=== PATIENT | female | born 1955 | race American Indian/Alaskan Native ===

== ENCOUNTER 2017-07-21 12:14 | Emergency (ER) | payer OTHER ==
--- NOTE | 2017-07-21 12:58 | Cat Scan Report ---
CT HEAD WITHOUT CONTRAST: HISTORY: Neurological deficit. TECHNIQUE: Sequential 2.5mm CT images. COMPARISON: none. FINDINGS: Cerebral Parenchyma: There is a partially calcified mass along the anterior left temporal lobe measuring 2.9 x 1.7 cm. This appears to represent an incidental middle cranial fossa meningioma. There is mild edema surrounding this mass in the left anterior temporal lobe. The remaining brain parenchyma is within normal limits. No large area of acute ischemia is confidently identified. Cerebellum: Within normal limits. Brainstem: Within normal limits. Ventricles: Normal. Sella: Normal. Extra-axial spaces: Normal. Basal Cisterns: Normal. Intracranial Hemorrhage: None. Midline Shift: None. Calvarium: Normal. Sinuses: Normal. Mastoid Air Cells: Normal. Visualized Orbits: Normal. IMPRESSION: No evidence for hemorrhage or large area of acute ischemia on noncontrast CT. Probable incidental middle cranial fossa meningioma as outlined above. This can be further evaluated with MRI with and without contrast if needed. These findings were discussed with Dr. Gonzáles in the emergency department at 1247 hrs.
--- NOTE | 2017-07-21 13:01 | Emergency Department Report ---
ED Neuro Deficit HPI - General Chief Complaint: Neuro Symptoms/Deficit Stated Complaint: LEFT SIDE FACIAL SWELLING/ DROOPING Time Seen by Provider: 07/21/17 13:00 Source: patient Mode of arrival: Ambulatory Limitations: No Limitations - History of Present Illness Initial Comments: Is a 61-year-old female that presents emergency room with complaints of left- sided facial weakness and drooping and swelling. She states she woke up this morning with the symptoms at 7:30 AM. Patient was then seen in urgent care and sent here for further evaluation. Patient denies chest pain shortness of breath. Patient denies difficulty speaking. Patient denies facial pain. Patient denies difficulty closing her eyes. -: Sudden Location: left face Presenting Symptoms: Present: Facial Droop/Numbness. Absent: Weak/Paralyzed One Side, Sudden, Severe Headache, Blurred/Loss of Vision, Unable to Speak Clearly, Altered Mental Status History of same: No Place: home Severity: mild Quality: numb Improves With: none Worsens With: none On Anticoagulants: No Context: sudden onset Associated Symptoms: denies other symptoms. denies: confusion, chest pain, cough, diaphoresis, fever/chills, headaches, loss of appetite, malise, nausea/ vomiting, vertigo, seizures, shortness of breath, syncope, weakness Treatments Prior to Arrival: none - Related Data Home Medications: Home Medications Medication Instructions Recorded Confirmed Last Taken Ergocalciferol [Vitamin D2] 1 cap PO QWEEK 07/21/17 07/21/17 Unknown Ferrous Sulfate [Iron] 325 mg PO DAILY 07/21/17 07/21/17 07/21/17 Lisinopril [Zestril TAB] 10 mg PO QDAY 07/21/17 07/21/17 07/21/17 amLODIPine [Norvasc] 10 mg PO DAILY 07/21/17 07/21/17 07/21/17 Allergies/Adverse Reactions: Allergies Allergy/AdvReac Type Severity Reaction Status Date / Time caffeine AdvReac Unknown Verified 07/21/17 12:27 ED Review of Systems ROS: Stated complaint: LEFT SIDE FACIAL SWELLING/ DROOPING Other details as noted in HPI Constitutional: denies: chills, fever Eyes: denies: eye pain, eye discharge, vision change ENT: denies: ear pain, throat pain Respiratory: denies: cough, shortness of breath, wheezing Cardiovascular: denies: chest pain, palpitations Endocrine: no symptoms reported Gastrointestinal: denies: abdominal pain, nausea, diarrhea Genitourinary: denies: urgency, dysuria, discharge Musculoskeletal: denies: back pain, joint swelling, arthralgia Skin: denies: rash, lesions Neurological: denies: headache, weakness, paresthesias Psychiatric: denies: anxiety, depression Hematological/Lymphatic: denies: easy bleeding, easy bruising ED Past Medical Hx - Past Medical History Previous Medical History?: Yes Hx Hypertension: Yes Additional medical history: LIPIDEMIA - Surgical History Past Surgical History?: Yes Additional Surgical History: HERNIA REPAIR 2006. GALL BLADDER HYSTERECTOMY. THYROID - Family History Family history: hypertension - Social History Smoking Status: Never Smoker Substance Use Type: None - Medications Home Medications: Home Medications Medication Instructions Recorded Confirmed Last Taken Type Ergocalciferol [Vitamin D2] 1 cap PO QWEEK 07/21/17 07/21/17 Unknown History Ferrous Sulfate [Iron] 325 mg PO DAILY 07/21/17 07/21/17 07/21/17 History Lisinopril [Zestril TAB] 10 mg PO QDAY 07/21/17 07/21/17 07/21/17 History amLODIPine [Norvasc] 10 mg PO DAILY 07/21/17 07/21/17 07/21/17 History ED Neuro Physical Exam - General Limitations: No Limitations General appearance: alert, in no apparent distress Suspected Stroke: Yes - Head Head exam: Present: atraumatic, normocephalic - Eye Eye exam: Present: normal appearance - ENT ENT exam: Present: mucous membranes moist - Neck Neck exam: Present: normal inspection - Respiratory Respiratory exam: Present: normal lung sounds bilaterally. Absent: respiratory distress - Cardiovascular Cardiovascular Exam: Present: regular rate, normal rhythm. Absent: systolic murmur, diastolic murmur, rubs, gallop - GI/Abdominal GI/Abdominal exam: Present: soft, normal bowel sounds - Extremities Exam Extremities exam: Present: normal inspection - Back Exam Back exam: Present: normal inspection - Neurological Exam Neurological exam: Present: alert, oriented X3 - NIHSS Assessment Interval: Baseline 1a. Level of Consciousness: alert 1b. LOC Questions: answers correctly 1c. LOC Commands: performs tasks correctly 2. Best Gaze: normal 3. Visual: no visual loss 4. Facial Palsy: minor paralysis 5b. Motor Arm Right: no drift 5a. Motor Arm Left: no drift 6a. Motor Leg Left: no drift 6b. Motor Leg Right: no drift 7. Limb Ataxia: absent 8. Sensory: normal 9. Best Language: no aphasia 10. Dysarthria: normal 11. Extinction/Inattention: no abnormality Total Score: 1 Stroke Severity: Minor Stroke - Psychiatric Psychiatric exam: Present: normal affect, normal mood - Skin Skin exam: Present: warm, dry, intact, normal color. Absent: rash ED Course Vital Signs 07/21/17 07/21/17 07/21/17 12:18 12:55 13:00 Temperature 98.3 F 98.3 F Pulse Rate 83 66 Respiratory 18 19 16 Rate Blood Pressure 142/94 128/82 Blood Pressure 128/82 [Right] O2 Sat by Pulse 98 97 Oximetry 07/21/17 07/21/17 07/21/17 13:15 13:30 13:45 Temperature Pulse Rate 60 78 62 Respiratory 19 12 16 Rate Blood Pressure 148/80 148/112 126/57 Blood Pressure [Right] O2 Sat by Pulse 99 100 97 Oximetry 07/21/17 07/21/17 07/21/17 14:00 14:15 14:30 Temperature Pulse Rate 65 68 64 Respiratory 21 14 12 Rate Blood Pressure 122/53 143/75 129/55 Blood Pressure [Right] O2 Sat by Pulse 94 97 100 Oximetry 07/21/17 07/21/17 07/21/17 14:45 15:00 15:15 Temperature Pulse Rate 72 76 76 Respiratory 17 17 13 Rate Blood Pressure 129/69 128/64 136/76 Blood Pressure [Right] O2 Sat by Pulse 96 96 96 Oximetry 07/21/17 07/21/17 07/21/17 15:30 15:45 16:00 Temperature Pulse Rate 75 77 83 Respiratory 14 15 14 Rate Blood Pressure 122/64 142/74 142/74 Blood Pressure [Right] O2 Sat by Pulse 97 95 98 Oximetry 07/21/17 07/21/17 07/21/17 16:16 16:30 16:46 Temperature Pulse Rate Respiratory Rate Blood Pressure 142/74 142/74 142/74 Blood Pressure [Right] O2 Sat by Pulse 98 97 98 Oximetry 07/21/17 07/21/17 07/21/17 17:00 17:15 17:30 Temperature Pulse Rate 74 76 74 Respiratory 16 20 18 Rate Blood Pressure 137/63 148/77 152/79 Blood Pressure [Right] O2 Sat by Pulse 97 98 98 Oximetry 07/21/17 07/21/17 07/21/17 17:45 18:00 18:15 Temperature Pulse Rate 73 76 72 Respiratory 17 13 13 Rate Blood Pressure 159/81 154/85 163/79 Blood Pressure [Right] O2 Sat by Pulse 100 97 99 Oximetry - Reevaluation(s) Reevaluation #1: Case with the tele-neurologist, Dr. Schneider. He recommends admission and MRI and no TPA 07/21/17 13:05 Reevaluation #2: Discussed plan of care with patient and family. ,. dr villeda recommends transfer. 07/21/17 14:21 Reevaluation #3: Discussed case with [place] transfer center. Awaiting acceptance from neurosurgery 07/21/17 15:02 Reevaluation #4: We'll consult [place] neurology service 07/21/17 15:21 Reevaluation #5: Dr. Piper accepts pt to [facility]. Patient given updated plan of care. Patient agrees to transfer. 07/21/17 17:36 - Consultations Consultation #1: dr Yanez from [facility] does not feel pt needs to be transfed to nsxr service but needs further neuro eval. 07/21/17 15:17 Consultation #2: DR SALINAS FROM [facility] REFUSED TRANSFER. 07/21/17 17:06 - Lab Data Result diagrams: 07/21/17 12:52 07/21/17 12:52 Lab Results 07/21/17 07/21/17 07/21/17 Range/Units 12:43 12:52 12:52 WBC 7.1 (4.5-11.0) K/mm3 RBC 5.34 H (3.65-5.03) M/mm3 Hgb 14.6 H (10.1-14.3) gm/dl Hct 43.5 H (30.3-42.9) % MCV 81 (79-97) fl MCH 27 L (28-32) pg MCHC 34 (30-34) % RDW 15.3 H (13.2-15.2) % Plt Count 254 (140-440) K/mm3 Lymph % (Auto) 22.2 (13.4-35.0) % Osborne % (Auto) 8.5 H (0.0-7.3) % Eos % (Auto) 0.9 (0.0-4.3) % Baso % (Auto) 0.7 (0.0-1.8) % Lymph # 1.6 (1.2-5.4) K/mm3 Osborne # 0.6 (0.0-0.8) K/mm3 Eos # 0.1 (0.0-0.4) K/mm3 Baso # 0.0 (0.0-0.1) K/mm3 Seg Neutrophils % 67.7 (40.0-70.0) % Seg Neutrophils # 4.8 (1.8-7.7) K/mm3 PT 13.5 (12.2-14.9) Sec. INR 0.98 (0.87-1.13) APTT 28.1 (24.2-36.6) Sec. Thrombin Time (15.1-19.6) Sec. Sodium (137-145) mmol/L Potassium (3.6-5.0) mmol/L Chloride (98-107) mmol/L Carbon Dioxide (22-30) mmol/L Anion Gap mmol/L BUN (7-17) mg/dL Creatinine (0.7-1.2) mg/dL Estimated GFR ml/min BUN/Creatinine Ratio % Glucose (65-100) mg/dL POC Glucose 94 (70-105) Calcium (8.4-10.2) mg/dL Troponin T (0.00-0.029) ng/mL 07/21/17 07/21/17 Range/Units 12:52 12:52 WBC (4.5-11.0) K/mm3 RBC (3.65-5.03) M/mm3 Hgb (10.1-14.3) gm/dl Hct (30.3-42.9) % MCV (79-97) fl MCH (28-32) pg MCHC (30-34) % RDW (13.2-15.2) % Plt Count (140-440) K/mm3 Lymph % (Auto) (13.4-35.0) % Osborne % (Auto) (0.0-7.3) % Eos % (Auto) (0.0-4.3) % Baso % (Auto) (0.0-1.8) % Lymph # (1.2-5.4) K/mm3 Osborne # (0.0-0.8) K/mm3 Eos # (0.0-0.4) K/mm3 Baso # (0.0-0.1) K/mm3 Seg Neutrophils % (40.0-70.0) % Seg Neutrophils # (1.8-7.7) K/mm3 PT (12.2-14.9) Sec. INR (0.87-1.13) APTT (24.2-36.6) Sec. Thrombin Time 17.9 (15.1-19.6) Sec. Sodium 137 (137-145) mmol/L Potassium 4.1 (3.6-5.0) mmol/L Chloride 99.4 (98-107) mmol/L Carbon Dioxide 25 (22-30) mmol/L Anion Gap 17 mmol/L BUN 18 H (7-17) mg/dL Creatinine 0.8 (0.7-1.2) mg/dL Estimated GFR > 60 ml/min BUN/Creatinine Ratio 23 % Glucose 92 (65-100) mg/dL POC Glucose (70-105) Calcium 9.3 (8.4-10.2) mg/dL Troponin T < 0.010 (0.00-0.029) ng/mL - EKG Data -: EKG Interpreted by Ok EKG shows normal: sinus rhythm, axis, intervals, QRS complexes, ST-T waves Rate: normal Interpretation: no acute changes, normal EKG - Radiology Data Radiology results: report reviewed Report reviewed and discussed with Dr. John. CT positive for meningioma with some swelling around it. No infarcts and no hemorrhage - Medical Decision Making 61-year-old female presents to emergency room with facial drooping. And found to have a meningioma with swelling at the site. Discussed case with Dr. Villeda. Dr. Villeda recommends transfer to Hospital as neurosurgery and a neurologist. Patient had a prolonged transfer process due to multiple specialists at [facility] refusing to accept patient. Patient finally accepted to [facility] in [place]. Patient will be transferred to [facility] further evaluation treatment. - Differential Diagnosis cva. facial droop. facial nerve d/o. Critical Care Time: Yes Critical care attestation.: If time is entered above; I have spent that time in minutes in the direct care of this critically ill patient, excluding procedure time. Critical Care Time: 45 minutes spent for cc time ED Disposition Clinical Impression: Facial droop, Meningioma Disposition: [id number]/TX-[id number] ANOTHER TYPE HLTHCARE Is pt being admited?: Yes Does the pt Need Aspirin: No Condition: Serious Time of Disposition: 17:39 - Assessment Assessment Interval: Baseline - Level of Consciousness 1a. Level of Consciousness: alert - LOC Questions 1b. LOC Questions: answers correctly - LOC Command 1c. LOC Commands: performs tasks correctly - Best Gaze 2. Best Gaze: normal - Visual 3. Visual: no visual loss - Facial Palsy 4. Facial Palsy: minor paralysis - Motor Arm 5b. Motor Arm Right: no drift 5a. Motor Arm Left: no drift - Motor Leg 6a. Motor Leg Left: no drift 6b. Motor Leg Right: no drift - Limb Ataxia 7. Limb Ataxia: absent - Sensory 8. Sensory: normal - Best Language 9. Best Language: no aphasia - Dysarthria 10. Dysarthria: normal - Extinction and Inattention 11. Extinction/Inattention: no abnormality - Scoring Total Score: 1 Stroke Severity: Minor Stroke
[2017-07-21 13:04] LABS: Basophils % (Auto) 0.7 % (0.0-1.8); Eosinophils # (Auto) 0.1 K/mm3 (0.0-0.4); Eosinophils % (Auto) 0.9 % (0.0-4.3); Hematocrit 43.5 % (30.3-42.9); Hemoglobin 14.6 gm/dl (10.1-14.3); Lymphocytes # (Auto) 1.6 K/mm3 (1.2-5.4); Lymphocytes % (Auto) 22.2 % (13.4-35.0); Mean Corpuscular HGB Conc 34 % (30-34); Mean Corpuscular Hemoglobin 27 pg (28-32); Mean Corpuscular Volume 81 fl (79-97); Monocytes # (Auto) 0.6 K/mm3 (0.0-0.8); Monocytes % (Auto) 8.5 % (0.0-7.3); Platelet Count 254 K/mm3 (140-440); Red Blood Count 5.34 M/mm3 (3.65-5.03); Red Cell Distribution Width 15.3 % (13.2-15.2)
[2017-07-21 13:12] LABS: INR 0.98 (0.87-1.13)
[2017-07-21 13:13] LABS: Partial Thromboplastin Time 28.1 Sec. (24.2-36.6)
[2017-07-21 13:14] LABS: BUN/Creatinine Ratio 23; Blood Urea Nitrogen 18 mg/dL (7-17); Calcium 9.3 mg/dL (8.4-10.2); Hemolysis Index 4
[2017-07-21] MEDS ORDERED: ASPIRIN PO ONE (13:57)
[2017-07-21 21:09] VITALS: BP 166/99
--- NOTE | 2017-07-22 10:29 | History and Physical Report ---
History of Present Illness Chief complaint: Im weak, and my face in droopy History of present illness: 61 YO Female with Obesity,HTN, HLD presents to ED for evaluation. Pt states that she was in her usual state of health upon going to bed around 2000hrs but awoke this morning around 730hrs with left side facial drooping, and weakness. Pt seen and evaluated in ED and found to have 2 x3cm Left Temporal mass with surrounding edema. Recommend transfer to higher level of care due to lack of subspecialty support. Discussed with Dr. Holt at [facility] who refused to accept patient. Pt deemed not appropriate for outpatient workup. Discussed with ED physician who plans to transfer patient to higher level of care. Past History Past Medical History: hypertension, hyperlipidemia Past Surgical History: cholecystectomy, thyroidectomy, hysterectomy, hernia repair Social history: Family history: hypertension Medications and Allergies Allergies Allergy/AdvReac Type Severity Reaction Status Date / Time caffeine AdvReac Unknown Verified 07/21/17 12:27 Home Medications Medication Instructions Recorded Confirmed Last Taken Type Ergocalciferol [Vitamin D2] 1 cap PO QWEEK 07/21/17 07/21/17 Unknown History Ferrous Sulfate [Iron] 325 mg PO DAILY 07/21/17 07/21/17 07/21/17 History Lisinopril [Zestril TAB] 10 mg PO QDAY 07/21/17 07/21/17 07/21/17 History amLODIPine [Norvasc] 10 mg PO DAILY 07/21/17 07/21/17 07/21/17 History Review of Systems Constitutional: no weight loss, no weight gain, no fever, no chills Ears, nose, mouth and throat: no ear pain, no ear discharge, no tinnitis, no decreased hearing, no nose pain, no nasal congestion Breasts: no change in shape, no swelling, no mass Cardiovascular: no chest pain, no palpitations, no edema, no syncope Respiratory: no cough, no cough with sputum, no excessive sputum, no hemoptysis , no shortness of breath Gastrointestinal: no abdominal pain, no nausea, no vomiting, no diarrhea, no constipation, no hematemesis Genitourinary Female: no pelvic pain, no flank pain, no menorrhagia, no dysuria , no urinary frequency, no urgency Rectal: no pain, no incontinence, no bleeding Musculoskeletal: no neck stiffness, no neck pain, no arm numbness/tingling, no low back pain, no shooting leg pain Integumentary: no rash, no pruritis, no redness, no sores, no wounds, no jaundice Neurological: weakness, change in speech, no transient paralysis, no paralysis, no parathesias, no numbness, no tingling, no seizures Psychiatric: no anxiety, no memory loss, no change in sleep habits, no sleep disturbances, no insomnia, no hypersomnia Endocrine: no cold intolerance, no heat intolerance, no polyphagia, no excessive thirst Hematologic/Lymphatic: no easy bruising, no easy bleeding Allergic/Immunologic: no urticaria, no allergic rhinitis, no wheezing Exam - Constitutional Vitals: Temp Pulse Resp BP Pulse Ox 98.4 F 88 16 166/99 99 07/21/17 21:08 07/21/17 21:08 07/21/17 21:08 07/21/17 21:08 07/21/17 21:08 General appearance: Present: mild distress, obese - EENT Eyes: Present: PERRL ENT: hearing intact, clear oral mucosa - Neck Neck: Present: supple, normal ROM - Respiratory Respiratory effort: normal Respiratory: bilateral: CTA - Cardiovascular Heart Sounds: Present: S1 & S2. Absent: rub, click - Extremities Extremities: pulses symmetrical, No edema Peripheral Pulses: within normal limits - Abdominal General gastrointestinal: Present: soft, non-tender, non-distended, normal bowel sounds Female genitourinary: Present: normal - Integumentary Integumentary: Present: clear, warm, dry - Musculoskeletal Musculoskeletal: left sided weakness - Psychiatric Psychiatric: appropriate mood/affect, intact judgment & insight - Neurologic Neurologic: CNII-XII intact, moves all extremities Results - Labs CBC & Chem 7: 07/21/17 12:52 07/21/17 12:52 Labs: Abnormal lab results 07/21/17 07/21/17 Range/Units 12:52 12:52 RBC 5.34 H (3.65-5.03) M/mm3 Hgb 14.6 H (10.1-14.3) gm/dl Hct 43.5 H (30.3-42.9) % MCH 27 L (28-32) pg RDW 15.3 H (13.2-15.2) % [place] % (Auto) 8.5 H (0.0-7.3) % BUN 18 H (7-17) mg/dL Assessment and Plan - Patient Problems (1) Meningioma Status: Acute Plan to address problem: Recommend transfer for complete neurology evaluation. Pt has cerebral edema as well. Recommend Neurology and neurosurgery evaluation. (2) Facial droop Status: Acute Plan to address problem: Stroke protocol,
== END 2017-07-21 21:08 | disposition other institution (70) ==
LOC: ED 12:14
DX: D32.9 Benign neoplasm of meninges, unspecified (principal); R29.810 Facial weakness; I10 Essential (primary) hypertension; E78.5 Hyperlipidemia, unspecified; Z90.49 Acquired absence of other specified parts of digestive tract; Z90.710 Acquired absence of both cervix and uterus; Z91.018 Allergy to other foods
CPT/HCPCS: 36415; 70450; 80048; 82962; 84484; 85025; 85610; 85670; 85730; 93005; 93010

== ENCOUNTER 2018-12-02 11:00 | Outpatient (CLI) | payer BC | END 2018-12-02 11:01 | disposition home or self-care (01) | LOC: SLR 11:00 | PROVIDERS: ATTEND Otolaryngology | DX: G47.33 Obstructive sleep apnea (adult) (pediatric) (principal); R40.0 Somnolence; R06.83 Snoring; I10 Essential (primary) hypertension | CPT/HCPCS: G0399 ==

== ENCOUNTER → 2018-12-13 | Outpatient (CLI) | payer BC | END | disposition home or self-care (01) | LOC: SLR 11:00 | PROVIDERS: ATTEND Otolaryngology | DX: G47.33 Obstructive sleep apnea (adult) (pediatric) (principal) | CPT/HCPCS: 95811 ==

== ENCOUNTER → 2019-06-26 | Outpatient (CLI) | payer BC | END | disposition home or self-care (01) | LOC: SLR 11:00 | PROVIDERS: ATTEND Otolaryngology | DX: G47.33 Obstructive sleep apnea (adult) (pediatric) (principal); R40.0 Somnolence; I10 Essential (primary) hypertension; E66.9 Obesity, unspecified | CPT/HCPCS: 95811 ==